=== PATIENT | male | born 1945 | race Two or more races ===

== ENCOUNTER 2017-05-04 09:03 | Emergency (ER) | payer OTHER ==
[~2017-05-04] VITALS: Ht 175.3 cm; Wt 64.4 kg
== END 2017-05-04 13:12 | disposition home or self-care (01) ==
LOC: ER 09:03
DX: J44.9 Chronic obstructive pulmonary disease, unspecified (principal); B34.9 Viral infection, unspecified

== ENCOUNTER 2017-08-04 23:58 | Emergency (ER) | payer OTHER ==
[~2017-08-04] VITALS: Ht 175.3 cm; Wt 68.0 kg
[2017-08-05] MEDS ORDERED: SIMVASTATIN10 MG (00:11)
[2017-08-05] MEDS ORDERED: PULMICORT1 MG/2 ML (00:12)
[2017-08-05] MEDS ORDERED: PROVENTIL HFA6.7 GM (00:12)
[2017-08-05] MEDS ORDERED: MEDROLPACK PO (13:41)
[2017-08-05] MEDS ORDERED: AZITHROMYCIN250 MG PO (13:43)
== END 2017-08-05 14:19 | disposition home or self-care (01) ==
LOC: ER 23:58
DX: J44.1 Chronic obstructive pulmonary disease with (acute) exacerbation (principal); J44.9 Chronic obstructive pulmonary disease, unspecified; J11.1 Influenza due to unidentified influenza virus with other respiratory manifestations

== ENCOUNTER 2017-12-07 10:20 | Emergency (ER) | payer OTHER ==
[~2017-12-07] VITALS: Ht 175.3 cm; Wt 67.6 kg
[~2017-12-07 10:20] MED LIST: AZITHROMYCIN250 MG PO; MEDROLPACK PO; PROVENTIL HFA6.7 GM; PULMICORT1 MG/2 ML; SIMVASTATIN10 MG
== END 2017-12-07 15:39 | disposition home or self-care (01) ==
LOC: ER 10:20
DX: R42 Dizziness and giddiness (principal)

== ENCOUNTER 2020-04-04 15:56 | Emergency (ER) | payer OTHER ==
[~2020-04-04] VITALS: Ht 177.8 cm; Wt 67.1 kg
== END 2020-04-04 21:46 | disposition home or self-care (01) ==
LOC: ER 15:56
DX: R50.9 Fever, unspecified (principal); R42 Dizziness and giddiness; J44.9 Chronic obstructive pulmonary disease, unspecified; Z03.818 Encounter for observation for suspected exposure to other biological agents ruled out

== ENCOUNTER 2020-04-10 11:59 | Emergency (ER) | payer OTHER ==
[~2020-04-10] VITALS: Ht 175.3 cm; Wt 67.1 kg
== END 2020-04-10 16:17 | disposition home or self-care (01) ==
LOC: ER 11:59
DX: L03.113 Cellulitis of right upper limb (principal)

== ENCOUNTER → 2021-01-29 | Outpatient (CLI) | payer OTHER | END | disposition home or self-care (01) | LOC: RAD 10:44 | PROVIDERS: ATTEND Internal Medicine Pulmonary Disease | DX: R06.02 Shortness of breath (principal); J43.2 Centrilobular emphysema ==

== ENCOUNTER 2024-12-18 16:23 | Emergency (ER) | payer OTHER ==
[~2024-12-18] VITALS: Ht 175.3 cm; Wt 68.0 kg
[2024-12-18] MEDS ORDERED: COZAAR25 MG (16:48)
[2024-12-18] MEDS ORDERED: METHYLPREDNISOLONE SOD SUCC 125 MG VIAL IV ONE (17:00)
[2024-12-18] MEDS ORDERED: IPRATROPIUM BROMIDE 0.5 MG/2.5 ML AMPUL.NEB IH ONE ×2 (17:00→17:41)
[2024-12-18] MEDS ORDERED: MAGNESIUM SULFATE IN WATER 50 ML IV ONE (17:00)
[2024-12-18] MEDS ORDERED: LEVALBUTEROL HCL 1.25 MG/3 ML SOLUTION IH ONE ×2 (17:00→17:41)
[2024-12-18] MEDS ORDERED: FAMOtidine 10 MG/ML (4ML VIAL) IV ONE (17:00)
[2024-12-18] MEDS ORDERED: METHYLPREDNISOLONE SOD SUCC 125 MG VIAL ONE (18:22)
[2024-12-18] MEDS ORDERED: FAMOTIDINE/PF 20 MG/2 ML VIAL ONE (18:22)
[2024-12-18 19:08] LABS: BASO % 0.5 % (0.1-1.2); EOS # 0.04 (0.04-0.54); EOS % 0.4 % (0.7-7.0); LYMPH # 0.62 (1.18-3.74); LYMPH % 5.6 % (19.3-53.1); MEAN PLATELET VOLUME 10.70 fl (9.4-12.4); MONO # 0.39 (0.24-0.82); MONO % 3.5 % (4.7-12.5); NEUT # 9.88 (1.56-6.13); NEUT % 89.7 % (34.0-71.1); RED CELL DISTRIBUTION WIDTH 13.9 % (11.6-14.4)
[2024-12-18 19:26] LABS: ALT/SGPT 19.0 U/L (12-78); AST/SGOT 19.0 U/L (15-37); BILIRUBIN TOTAL 0.65 mg/dL (0.3-1.2); BUN CREA RATIO 16.0 (7.0-25.0); CREATININE SERUM 0.99 mg/dL (0.70-1.30); GFR 72.73; GLOBULINA 3.8 G/DL (2.4-3.5); GLUCOSE FASTING 124.0 mg/dL (65-100); OSMOLALITY SERUM 286.0 MOSM/KG (275-295)
[2024-12-18 19:29] LABS: INR 1.04
[2024-12-18 19:30] LABS: D DIMER 1.17 MG/L
[2024-12-18 19:33] LABS: COVID-19 AG NEGATIVE (NEGATIVE)
[2024-12-18 21:57] LABS: URINE APPEARANCE Clear; URINE BILIRRUBIN Negative (NEGATIVE); URINE BLOOD Negative; URINE COLOR Yellow; URINE GLUCOSE Negative (NEGATIVE); URINE KETONE Trace (NEGATIVE); URINE LEUKOCYTE Negative; URINE NITRATE Negative; URINE PROTEIN Negative (NEGATIVE); URINE UROBILINOGEN 1.0 E.U./dl
[2024-12-18 22:00] LABS: URINE BACTERIA 26.3 uL (0.0-1933); URINE EPITHELIAL CELLS 3.5 uL (0.0-38.8); URINE RBC 12.0 uL (0.0-20.8); URINE WBC 5.0 uL (0.0-23.2)
[2024-12-18 22:13] LABS: URINE CAST 0.29 uL (0.0-1.40)
[2024-12-18] MEDS ORDERED: CEFTRIAXONE SODIUM 1,000 MG VIAL IV ONE (22:30)
[2024-12-18] MEDS ORDERED: CEFTRIAXONE SODIUM 1,000 MG VIAL ONE (23:24)
== END 2024-12-19 04:19 | disposition home or self-care (01) ==
LOC: ER 16:23
PROVIDERS: General Practice
DX: R06.02 Shortness of breath (principal); J44.1 Chronic obstructive pulmonary disease with (acute) exacerbation; J45.901 Unspecified asthma with (acute) exacerbation; F17.290 Nicotine dependence, other tobacco product, uncomplicated; E78.00 Pure hypercholesterolemia, unspecified; I10 Essential (primary) hypertension; Z20.822 Contact with and (suspected) exposure to COVID-19
CPT/HCPCS: 36415; 71045; 71260; 82803; 94640; 96365; 99284; J0696; J3475; J3490; Q9965